=== PATIENT | male | born 1970 | race Caucasian/White ===

== ENCOUNTER 2017-06-20 21:30 | Emergency (ER) | payer OTHER ==
--- NOTE | 2017-06-20 21:58 | ERPHSYRPT ---
- History of Present Illness Time Seen by Provider: 06/20/17 21:45 Source: patient Exam Limitations: clinical condition Patient Subjective Stated Complaint: pt had knee surgery last week and maureenight sharad surture came and he was wondering if the rest of the sutres could be taken out -dr sorenson did the surgery Triage Nursing Assessment: pt is awake and alert and able to answer questions the wound is clean dry and intact Physician History: PATIENT UNDERWENT RIGHT KNEE SURGERY LAST WEEK AND STATES 1 OF HIS SUTURE CAME LOOSE ABOVE HIS RIGHT KNEE. DENIES DRAINAGE, REDNESS, SWELLING OR FEVER. Occurred: this morning Severity of Pain-Max: none Severity of Pain-Current: none Modifying Factors: Improves With: nothing Associated Symptoms: none Allergies/Adverse Reactions: morphine Allergy (Verified 10/23/16 21:13) Home Medications: Hydrocodone/APAP 10/325 mg [[place] 10/325 MG Tablet] 1 tab PO QIDPRN PRN [History] Omeprazole 20 MG [Prilosec 20 mg] 20 mg PO DAILY 11/28/13 [History] Temazepam 15 mg [Restoril 15 MG] 15 mg PO HSPRN PRN 11/28/13 [History] Cyclobenzaprine HCl 10 mg [Flexeril 10 MG] 1 tab PO DAILY 08/23/15 [ History] Eszopiclone [Lunesta] 3 mg PO HS 08/23/15 [History] Gabapentin 600 mg PO TID 10/23/16 [History] Hx Tetanus, Diphtheria Vaccination/Date Given: Yes Hx Influenza Vaccination/Date Given: No Hx Pneumococcal Vaccination/Date Given: No - Review of Systems Constitutional: No Fever, No Chills Eyes: No Symptoms Ears, Nose, & Throat: No Symptoms Respiratory: No Symptoms, No Cough, No Dyspnea Cardiac: No Chest Pain, No Edema, No Syncope Abdominal/Gastrointestinal: No Abdominal Pain, No Nausea, No Vomiting, No Diarrhea Genitourinary Symptoms: No Symptoms, No Dysuria Musculoskeletal: No Symptoms, Other (SUTURES X2 INTACT OVER RIGHT KNEE), No Back Pain, No Neck Pain Skin: No Rash Neurological: No Dizziness, No Focal Weakness, No Sensory Changes Psychological: No Symptoms Endocrine: No Symptoms All Other Systems: Reviewed and Negative - Past Medical History Pertinent Past Medical History: Yes Neurological History: No Pertinent History ENT History: No Pertinent History Cardiac History: No Pertinent History Respiratory History: No Pertinent History Endocrine Medical History: No Pertinent History Musculoskeletal History: Degenerative Disk Disease, Osteoarthritis GI Medical History: GERD History: No Pertinent History Psycho-Social History: Bipolar, Depression Male Reproductive Disorders: No Pertinent History Other Medical History: Acid Reflux. Hx of MCL, ACL repair bilateral knees per patient - Past Surgical History Past Surgical History: Yes Neuro Surgical History: No Pertinent History Cardiac: No Pertinent History Respiratory: No Pertinent History Gastrointestinal: No Pertinent History Musculoskeletal: Orthopedic Surgery Male Surgical History: No Pertinent History Other Surgical History: tonsils, lithotripsy, left knee ACL repair, RIGHT ACL REPAIR - Social History Smoking Status: Current every day smoker Exposure to second hand smoke: No Drug Use: none Patient Lives Alone: No - Nursing Vital Signs Nursing Vital Signs: Initial Vital Signs Temperature 98.5 F 06/20/17 21:41 Pulse Rate 104 H 06/20/17 21:41 Respiratory Rate 18 06/20/17 21:41 Blood Pressure 133/84 06/20/17 21:41 O2 Sat by Pulse Oximetry 94 L 06/20/17 21:41 Pain Scale Pain Intensity 0 - Physical Exam General Appearance: no apparent distress Knees Exam: right knee: normal inspection (RIGHT KNEE 2 SUTURES INTACT OVER MEDIAL AND LATERAL ASPECT OF [place], NO SWELLING OR REDNESS OR DRAINAGE, FROM RIGHT KNEE WITHOUT PAIN) SpO2 Interpretation: normal SpO2: 94 Oxygen Delivery: Room Air - Progress Counseled pt/family regarding: need for follow-up - Departure Time of Disposition: 22:00 Departure Disposition: Home Clinical Impression: RIGHT KNEE WOUND RECHECK Condition: Stable Critical Care Time: No Additional Instructions: FOLLOWUP WITH ORTHOPEDIC SURGEON FOR SUTURE REMOVAL.
[2017-06-20 22:07] VITALS: BP 126/84; PULSE 92; O2SAT 96
== END 2017-06-20 22:07 | disposition home or self-care (01) ==
LOC: ED 21:30
DX: Z04.8 Encounter for examination and observation for other specified reasons (principal); Z48.01 Encounter for change or removal of surgical wound dressing
CPT/HCPCS: 99281

== ENCOUNTER 2017-08-31 16:34 | Emergency (ER) | payer OTHER ==
[2017-08-31] MEDS ORDERED: Sodium Chloride 0.9% 1000 ML 1,000 ML IV STA (17:35)
[2017-08-31] MEDS ORDERED: Zofran 4 MG/2 ML VIAL IV ONE (17:35)
--- NOTE | 2017-08-31 17:37 | ERPHSYRPT ---
- History of Present Illness Time Seen by Provider: 08/31/17 17:31 Source: patient Exam Limitations: no limitations Patient Subjective Stated Complaint: vomiting and aching all over since yesterday Triage Nursing Assessment: ambulated to room per self. skin w/d, color normal, resp easy. no vomiting at present time. states he feels like he has a "knot" in his stomach. denies any diarrhea. Physician History: Patient is a 46-year-old male complaining of not feeling well for 3 days. Yesterday he began vomiting. He continues vomiting today. He states his muscles of started to cramp up on him. For the past 2 nights he has been sweating. His past medical history is significant for bipolar disorder and GERD. Timing/Duration: yesterday Severity: moderate Modifying Factors: Improves With: nothing Associated Symptoms: nausea, vomiting, No abdominal pain Allergies/Adverse Reactions: morphine Allergy (Verified 08/31/17 17:05) Home Medications: Hydrocodone/APAP 10/325 mg [[place] 10/325 MG Tablet] 1 tab PO QIDPRN PRN [History] Omeprazole 20 MG [Prilosec 20 mg] 20 mg PO DAILY 11/28/13 [History] Cyclobenzaprine HCl 10 mg [Flexeril 10 MG] 1 tab PO DAILY 08/23/15 [ History] Eszopiclone [Lunesta] 3 mg PO HS 08/23/15 [History] Gabapentin 600 mg PO TID 10/23/16 [History] Bupropion HCl Xl 150 mg [Wellbutrin XL 150 MG] 150 mg PO BID 08/31/17 [ History] Hx Tetanus, Diphtheria Vaccination/Date Given: Yes Hx Influenza Vaccination/Date Given: No Hx Pneumococcal Vaccination/Date Given: No - Review of Systems Constitutional: Night Sweats Eyes: No Symptoms Ears, Nose, & Throat: No Symptoms Respiratory: No Cough, No Dyspnea Cardiac: No Chest Pain, No Edema, No Syncope Abdominal/Gastrointestinal: Nausea, Vomiting Genitourinary Symptoms: No Dysuria Musculoskeletal: Myalgias Skin: No Rash Neurological: No Dizziness, No Focal Weakness, No Sensory Changes Psychological: No Symptoms Endocrine: No Symptoms Hematologic/Lymphatic: No Symptoms Immunological/Allergic: No Symptoms All Other Systems: Reviewed and Negative - Past Medical History Pertinent Past Medical History: Yes Neurological History: No Pertinent History ENT History: No Pertinent History Cardiac History: No Pertinent History Respiratory History: No Pertinent History Endocrine Medical History: No Pertinent History Musculoskeletal History: Degenerative Disk Disease, Osteoarthritis GI Medical History: GERD History: No Pertinent History Psycho-Social History: Bipolar, Depression Male Reproductive Disorders: No Pertinent History Other Medical History: Acid Reflux. Hx of MCL, ACL repair bilateral knees per patient - Past Surgical History Past Surgical History: Yes Neuro Surgical History: No Pertinent History Cardiac: No Pertinent History Respiratory: No Pertinent History Gastrointestinal: No Pertinent History Musculoskeletal: Orthopedic Surgery Male Surgical History: No Pertinent History Other Surgical History: tonsils, lithotripsy, left knee ACL repair, RIGHT ACL REPAIR - Social History Smoking Status: Former smoker Exposure to second hand smoke: No Drug Use: none Patient Lives Alone: No - Nursing Vital Signs Nursing Vital Signs: Initial Vital Signs Temperature 98.5 F 08/31/17 16:58 Pulse Rate 65 08/31/17 16:58 Respiratory Rate 16 08/31/17 16:58 Blood Pressure 140/69 08/31/17 16:58 O2 Sat by Pulse Oximetry 93 L 08/31/17 16:58 Pain Scale Pain Intensity 0 - Physical Exam General Appearance: no apparent distress, alert Eye Exam: PERRL/EOMI, eyes nml inspection Ears, Nose, Throat Exam: dry mucous membranes Neck Exam: normal inspection, non-tender, supple, full range of motion Respiratory Exam: normal breath sounds, lungs clear, No respiratory distress Cardiovascular Exam: regular rate/rhythm, normal heart sounds, normal peripheral pulses Gastrointestinal/Abdomen Exam: soft, normal bowel sounds, No tenderness, No mass Rectal Exam: not done Back Exam: normal inspection, normal range of motion, No CVA tenderness, No vertebral tenderness Extremity Exam: normal inspection, normal range of motion, pelvis stable Neurologic Exam: alert, oriented x 3, cooperative, normal mood/affect, nml cerebellar function, nml station & gait, sensation nml, No motor deficits Skin Exam: normal color, warm, dry, No rash Lymphatic Exam: No adenopathy SpO2 Interpretation: normal SpO2: 93 Oxygen Delivery: Room Air Ordered Tests: Active Orders 24 hr Category Date Time Status IV Insertion STAT Care 08/31/17 17:26 Active CBC W DIFF Stat Lab 08/31/17 17:25 Completed CMP Stat Lab 08/31/17 17:25 Completed Lactic Acid Stat Lab 08/31/17 17:40 Completed Medication Summary Discontinued Medications Generic Name Dose Route Start Last Admin Trade Name Syl PRN Reason Stop Dose Admin Sodium Chloride 1,000 mls @ 999 mls/hr 08/31/17 17:35 08/31/17 17:40 Sodium Chloride 0.9% 1000 Ml IV 08/31/17 18:35 999 mls/hr .Q1H1M STA Administration Sodium Chloride Confirm 08/31/17 17:38 Sodium Chloride 0.9% 1000 Ml Administered 08/31/17 17:39 Dose 1,000 mls @ ud .ROUTE .STK-MED ONE Ondansetron HCl 4 mg 08/31/17 17:35 08/31/17 17:40 Zofran 4 Mg/2 Ml Vial IV 08/31/17 17:36 4 mg STAT ONE Administration Ondansetron HCl Confirm 08/31/17 17:38 Zofran 4 Mg/2 Ml Vial Administered 08/31/17 17:39 Dose 4 mg .ROUTE .STK-MED ONE Lab/Rad Data: Laboratory Result Diagrams 08/31/17 17:25 08/31/17 17:25 Laboratory Results 08/31/17 08/31/17 08/31/17 Range/Units 17:40 17:25 17:25 WBC 5.9 (4.0-10.5) K/mm3 RBC 4.74 (4.1-5.6) M/mm3 Hgb 14.5 (12.5-18.0) gm/dl Hct 42.4 (42-50) % MCV 89.5 (78-100) fl MCH 30.6 (26-32) pg MCHC 34.2 (32-36) g/dl RDW 12.9 (11.5-14.0) % Plt Count 188 (150-450) K/mm3 MPV 10.3 H (6-9.5) fl Gran % 55.2 (36.0-66.0) % Lymphocytes % 29.0 (24.0-44.0) % Monocytes % 9.5 (0.0-12.0) % Eosinophils % 5.1 H (0.00-5.0) % Basophils % 1.2 (0.0-0.4) % Basophils # 0.07 (0-0.4) Sodium 140 (136-145) mEq/L Potassium 4.0 (3.5-5.1) mEq/L Chloride 105 (98-107) mEq/L Carbon Dioxide 27.9 (21-32) mEq/L Anion Gap 11.5 (5-15) MEQ/L BUN 10 (9-20) mg/dL Creatinine 1.26 (0.55-1.30) mg/dl Estimated GFR > 60 ML/MIN Glucose 107 (70-110) MG/DL Lactic Acid 1.7 (0.4-2.0) Calcium 8.9 (8.5-10.1) mg/dL Total Bilirubin 0.40 (0.2-1.0) mg/dL AST 24 (15-37) U/L ALT 32 (12-78) U/L Alkaline Phosphatase 82 (46-116) U/L Serum Total Protein 6.3 L (6.4-8.2) gm/dL Albumin 3.8 (3.4-5.0) g/dL - Progress Progress: improved Counseled pt/family regarding: lab results, diagnosis - Departure Time of Disposition: 18:46 Departure Disposition: Home Clinical Impression: Vomiting Condition: Stable Critical Care Time: No Referrals: SUSAN HOLLAND [Primary Care Provider] - Additional Instructions: You had vomiting. You were given Zofran 4 mg by IV and fluids by IV in the ER. Take Zofran 4 mg ODT every 6 hours as needed for nausea and vomiting. Stay well hydrated. Follow-up as needed. Prescriptions: Ondansetron ODT 4 MG [Zofran Odt 4 mg] 1 tab PO Q6H PRN PRN #10 tab.rapdis PRN Reason: Nausea/Vomiting
[2017-08-31] MEDS ORDERED: Sodium Chloride 0.9% 1000 ML 1,000 ML ONE (17:38)
[2017-08-31] MEDS ORDERED: Zofran 4 MG/2 ML VIAL ONE (17:38)
[2017-08-31 17:47] LABS: BASOPHIL % 1.2 % (0.0-0.4); Eosinophil % 5.1 % (0.00-5.0); Granulocytes % 55.2 % (36.0-66.0); Mean Cell Volume 89.5 fl (78-100); Mean Corpuscular Hemoglobin 30.6 pg (26-32); Mean Platelet Volume 10.3 fl (6-9.5); Monocytes % 9.5 % (0.0-12.0); Platelet Count 188 K/mm3 (150-450); Red Blood Count 4.74 M/mm3 (4.1-5.6); Red Cell Distribution Width 12.9 % (11.5-14.0); White Blood Count 5.9 K/mm3 (4.0-10.5)
[2017-08-31 18:09] LABS: ALBUMIN 3.8 g/dL (3.4-5.0); ALKALINE PHOSPHATASE 82 U/L (46-116); ANION GAP 11.5 MEQ/L (5-15); BLOOD UREA NITROGEN 10 mg/dL (9-20); CHLORIDE 105 mEq/L (98-107); Carbon Dioxide 27.9 mEq/L (21-32); Glucose 107 MG/DL (70-110); SGOT/AST 24 U/L (15-37); SGPT/ALT 32 U/L (12-78); SODIUM 140 mEq/L (136-145); Total Protein 6.3 gm/dL (6.4-8.2)
[2017-08-31 18:36] VITALS: BP 109/62; PULSE 76; O2SAT 93
== END 2017-08-31 18:58 | disposition home or self-care (01) ==
LOC: ED 16:34
DX: R11.2 Nausea with vomiting, unspecified (principal); R25.2 Cramp and spasm; F31.9 Bipolar disorder, unspecified; K21.9 Gastro-esophageal reflux disease without esophagitis; Z79.891 Long term (current) use of opiate analgesic; Z79.899 Other long term (current) drug therapy
CPT/HCPCS: 36000; 36415; 80053; 83605; 85025; 96360; 96374; 99283; 99284; J2405

== ENCOUNTER 2020-09-04 09:40 | Emergency (ER) | payer OTHER ==
[2020-09-04 10:28] VITALS: BP 164/104; PULSE 85; O2SAT 94
--- NOTE | 2020-09-04 10:39 | ERPHSYRPT ---
- History of Present Illness Time Seen by Provider: 09/04/20 10:20 Source: patient Exam Limitations: no limitations Patient Subjective Stated Complaint: Earache Triage Nursing Assessment: Patient ambulated back to ED and transferred self to bed. Patient A+O X 3. Patient's skin pink, warm and dry. Patient complains of earache to right ear constant aching pain / since Saturday. Patient denies drainage or difficulty hearing. Physician History: 49 years old male with history of recurrent otitis media in the past with ruptured TM presented in the ER with 2 days history of gradually increasing pain moderate intensity sharp in nature in the right ear without any drainage. Denies fever or chills. No URI symptoms otherwise. Timing/Duration: gradual onset, days (2) Severity: moderate ENT Location: ear (R) Prearrival Treatment: over the counter meds Associated Symptoms: ear pain (R), No cough, No fever, No change in hearing, No ear drainage, No headache, No nasal congestion/drainage, No neck pain, No sore throat Allergies/Adverse Reactions: morphine Allergy (Verified 09/04/20 10:22) Home Medications: Omeprazole 20 MG [Prilosec 20 mg] 20 mg PO DAILY 11/28/13 [History] Eszopiclone [Lunesta] 3 mg PO HS 08/23/15 [History] Gabapentin 600 mg PO BID 10/23/16 [History] Diphenhydramine HCl 25 mg [Benadryl 25 mg Capsule] 25 mg PO HS 07/11/19 [History] Hydrocodone Bit/Acetaminophen [[place] 7.5-325 Tablet] 1 each PO BID 07/11/19 [History] Hx Tetanus, Diphtheria Vaccination/Date Given: Yes Hx Influenza Vaccination/Date Given: No Hx Pneumococcal Vaccination/Date Given: No Immunizations Up to Date: Yes Travel Risk - International Travel Have you traveled outside of the country in past 3 weeks: No - Coronavirus Screening Are you exhibiting any of the following symptoms?: No Close contact with a COVID-19 positive Pt in past 14-21 Days: No - Review of Systems Constitutional: No Symptoms Eyes: No Symptoms Ears, Nose, & Throat: Ear Pain Respiratory: No Symptoms Cardiac: No Symptoms Abdominal/Gastrointestinal: No Symptoms Genitourinary Symptoms: No Symptoms Musculoskeletal: No Symptoms Skin: No Symptoms Neurological: No Symptoms Hematologic/Lymphatic: No Symptoms - Past Medical History Pertinent Past Medical History: Yes Neurological History: No Pertinent History ENT History: No Pertinent History Cardiac History: No Pertinent History Respiratory History: No Pertinent History Endocrine Medical History: No Pertinent History Musculoskeletal History: Degenerative Disk Disease, Osteoarthritis GI Medical History: GERD History: No Pertinent History Psycho-Social History: Bipolar, Depression Male Reproductive Disorders: No Pertinent History Other Medical History: Acid Reflux. Hx of MCL, ACL repair bilateral knees per patient - Past Surgical History Past Surgical History: Yes Neuro Surgical History: No Pertinent History Cardiac: No Pertinent History Respiratory: No Pertinent History Gastrointestinal: No Pertinent History Genitourinary: Other Musculoskeletal: Orthopedic Surgery Male Surgical History: No Pertinent History Other Surgical History: lithotripsy, left knee ACL repair x 2, RIGHT ACL REPAIR x 2 - Social History Smoking Status: Never smoker Exposure to second hand smoke: No Drug Use: none Patient Lives Alone: Yes - Nursing Vital Signs Nursing Vital Signs: Initial Vital Signs Pulse Rate 85 09/04/20 10:24 Respiratory Rate 18 09/04/20 10:24 Blood Pressure 164/104 09/04/20 10:24 O2 Sat by Pulse Oximetry 94 L 09/04/20 10:24 Pain Scale Pain Intensity 6 - Physical Exam General Appearance: no apparent distress, alert Eye Exam: bilateral eye: normal inspection, PERRL Ear Exam: right ear: TM dull, TM bulging, left ear: TM normal, bilateral ear: auricle normal, canal normal Nasal Exam: normal inspection Throat Exam: normal, pharynx normal Neck Exam: normal inspection, non-tender, supple, full range of motion Cardiovascular/Respiratory Exam: normal breath sounds, regular rate/rhythm Neurologic Exam: alert, oriented x 3, cooperative, lehr cutter II-XII nml as tested, normal mood/affect Skin Exam: normal color SpO2 Interpretation: normal SpO2: 94 O2 Delivery: Room Air - Progress Progress: unchanged Progress Note: 09/04/20 10:42 Has otitis media, started on Augmentin along with pain medications as needed and outpatient follow-up with primary care. Because of repeated infection recommended outpatient follow-up/referral from primary care for ENT. Counseled pt/family regarding: diagnosis, need for follow-up - Departure Departure Disposition: Home Clinical Impression: Otitis media of right ear Qualifiers: Otitis media type: suppurative Chronicity: acute Recurrence: recurrent Spontaneous tympanic membrane rupture: without spontaneous rupture Qualified Code(s): H66.004 - Acute suppurative otitis media without spontaneous rupture of ear drum, recurrent, right ear Condition: Stable Critical Care Time: No Referrals: SUSAN SINGH [Primary Care Provider] - Follow Up with PCP/3 days Instructions: Serous Otitis Media (DC) Additional Instructions: Use Tylenol use Tylenol/ibuprofen as needed for pain. Continue with antibiotics. Follow-up with your primary care physician for reevaluation and may need referral to ENT specialist. Prescriptions: Amox Tr/Potass Clav. 875 mg [Augmentin 875-125 Tablet] 875 mg PO BID #20 tablet
== END 2020-09-04 10:55 | disposition home or self-care (01) ==
LOC: ED 09:40
DX: H66.91 Otitis media, unspecified, right ear (principal)
CPT/HCPCS: 99283

== ENCOUNTER 2023-02-21 22:18 | Emergency (ER) | payer OTHER ==
[2023-02-21] MEDS ORDERED: Sodium Chloride 0.9% 1000 ML 1,000 ML IV STA (22:38)
[2023-02-21] MEDS ORDERED: Zofran 4 MG/2 ML VIAL IV ONE (22:38)
[2023-02-21 22:46] LABS: Absolute Neutrophil Ct (ANC) 8.24 x10^3/uL (1.4-6.9); BASOPHIL % 0.2 % (0.0-0.4); Basophil (Absolute #) 0.02 x10^3/uL (0-0.4); Eosinophil % 2.5 % (0.00-5.0); Eosinophil (Absolute #) 0.27 x10^3/uL (0-0.5); Hematocrit 49.6 % (42-50); Hemoglobin 16.6 g/dL (12.5-18.0); IMMATURE GRAN # 0.04 x10^3u/L (0.00-0.03); IMMATURE GRAN % 0.4 % (0.00-0.4); Lymphocyte (Absolute #) 1.85 x10^3/uL (1.0-4.6); Lymphocytes % 16.8 % (24.0-44.0); Mean Cell Volume 89.7 fL (78-100); Mean Corpuscular Hgb Concent. 33.5 g/dL (32-36); Mean Platelet Volume 9.8 fL (7.5-11.0); Monocyte (Absolute #) 0.57 x10^3/uL (0.0-1.3); Monocytes % 5.2 % (0.0-12.0); Neutrophil % 74.9 % (36.0-66.0); Platelet Count 300 x10^3/uL (150-450); Red Blood Count 5.53 x10^6/uL (4.1-5.6); Red Cell Distribution Width 12.4 % (11.5-14.0)
[2023-02-21] MEDS ORDERED: Sodium Chloride 0.9% 1000 ML 1,000 ML ONE (22:48)
[2023-02-21] MEDS ORDERED: Zofran 4 MG/2 ML VIAL ONE (22:48)
[2023-02-21 23:00] LABS: ALBUMIN 4.2 g/dL (3.5-5.0); ALKALINE PHOSPHATASE 126 U/L (38-126); AMYLASE 90 U/L (30-110); ANION GAP 15.5 MEQ/L (5-15); BLOOD UREA NITROGEN 10 mg/dL (9-20); CHLORIDE 102 mmol/L (98-107); Calcium 9.2 mg/dL (8.4-10.2); Carbon Dioxide 25 mmol/L (22-30); Creatinine 1 1.07 mg/dL (0.66-1.25); EST GLOMERULAR FILTRATION RATE > 60.0 ML/MIN; Glucose 97 mg/dL (74-106); LIPASE 110 U/L (23-300); Potassium 4.2 mmol/L (3.5-5.1); SGOT/AST 20 U/L (17-59); SGPT/ALT 20 U/L (0-50); SODIUM 139 mmol/L (137-145); Total Protein 7.4 g/dL (6.3-8.2)
--- NOTE | 2023-02-21 23:40 | ERPHSYRPT ---
- History of Present Illness Historian: patient Exam Limitations: no limitations Patient Subjective Stated Complaint: pt states I don't know if I have food poisoning or the ozempic that is making me throwing up Triage Nursing Assessment: pt ambulated into the er; pt is axo x4; c/o vomiting; no pain noted; no respiratory distress present; skin PDW; mucus membranes pink and moist; c/o N/V; denies diarrhea or constipation; vitals wnl Physician History: 52 yo WM who administered his 2nd injection of Ozempic 2 days ago for weight loss presents w a 1 day h/o nausea/vomiting. He denies abdominal pain/diarrhea/chest pain/melena/hematochezia/fever/cough/coryza. Pt also ate [employer] yesterday before the N/V began. Timing/Duration: yesterday Activities at Onset: rest Modifying Factors: Improves With: nothing Associated Symptoms: nausea, vomiting Previous symptoms: no prior history Allergies/Adverse Reactions: morphine Allergy (Verified 02/21/23 22:25) Home Medications: Omeprazole 20 MG [Prilosec 20 mg] 20 mg PO DAILY 11/28/13 [History] Eszopiclone [Lunesta] 3 mg PO HS 08/23/15 [History] Gabapentin 300 mg PO BID 10/23/16 [History] Diphenhydramine HCl 25 mg [Benadryl 25 mg Capsule] 25 mg PO HS 07/11/19 [History] Hydrocodone/Acetaminophen [[place] 7.5-325 Tablet] 1 each PO BID 07/11/19 [History] Semaglutide [Ozempic] 1 syringe SQ WEEKLY 02/21/23 [History] Hx Tetanus, Diphtheria Vaccination/Date Given: Yes Hx Influenza Vaccination/Date Given: No Hx Pneumococcal Vaccination/Date Given: No Travel Risk - International Travel Have you traveled outside of the country in past 3 weeks: No - Coronavirus Screening Are you exhibiting any of the following symptoms?: Yes Symptoms: Vomiting/Diarrhea Close contact with a COVID-19 positive Pt in past 14-21 Days: No - Vaccine Status Have you recieved a Covid-19 vaccination: No - Review of Systems Constitutional: No Symptoms Eyes: No Symptoms Ears, Nose, & Throat: No Symptoms Respiratory: No Symptoms Cardiac: No Symptoms Abdominal/Gastrointestinal: No Symptoms, Nausea, Vomiting Genitourinary Symptoms: No Symptoms Musculoskeletal: No Symptoms Skin: No Symptoms Neurological: No Symptoms Psychological: No Symptoms Endocrine: No Symptoms Hematologic/Lymphatic: No Symptoms Immunological/Allergic: No Symptoms - Past Medical History Pertinent Past Medical History: Yes Neurological History: No Pertinent History ENT History: No Pertinent History Cardiac History: No Pertinent History Respiratory History: No Pertinent History Endocrine Medical History: No Pertinent History Musculoskeletal History: Degenerative Disk Disease, Osteoarthritis GI Medical History: GERD History: No Pertinent History Psycho-Social History: Bipolar, Depression Male Reproductive Disorders: No Pertinent History Other Medical History: Acid Reflux. Hx of MCL, ACL repair bilateral knees per patient - Past Surgical History Past Surgical History: Yes Neuro Surgical History: No Pertinent History Cardiac: No Pertinent History Respiratory: No Pertinent History Gastrointestinal: No Pertinent History Genitourinary: Other Musculoskeletal: Orthopedic Surgery Male Surgical History: No Pertinent History Other Surgical History: lithotripsy, left knee ACL repair x 2, RIGHT ACL REPAIR x 2 - Social History Smoking Status: Former smoker Exposure to second hand smoke: Yes Drug Use: none Patient Lives Alone: No - Nursing Vital Signs Nursing Vital Signs: Initial Vital Signs Temperature 97.2 F 02/21/23 22:28 Pulse Rate 76 02/21/23 22:28 Respiratory Rate 16 02/21/23 22:28 Blood Pressure 140/100 02/21/23 22:28 O2 Sat by Pulse Oximetry 94 L 02/21/23 22:28 Pain Scale Pain Intensity 0 Hypertensive - Physical Exam General Appearance: no apparent distress Eye Exam: PERRL/EOMI, eyes nml inspection Ears, Nose, Throat Exam: normal ENT inspection, TMs normal, pharynx normal, moist mucous membranes Neck Exam: normal inspection, non-tender, supple, full range of motion, No meningismus, No mass, No Brudzinski, No Kernig's, No carotid bruit Respiratory Exam: normal breath sounds, lungs clear, airway intact, No respiratory distress Cardiovascular Exam: regular rate/rhythm, normal heart sounds, normal peripheral pulses, capillary refill <2 sec, No murmur Gastrointestinal/Abdomen Exam: soft, normal bowel sounds, No tenderness Back Exam: normal inspection, normal range of motion Extremity Exam: normal inspection, normal range of motion Neurologic Exam: alert, oriented x 3, cooperative, manager industrial II-XII nml as tested, normal mood/affect, nml cerebellar function, nml station & gait, sensation nml Skin Exam: normal color, warm, dry Lymphatic Exam: No adenopathy SpO2 Interpretation: normal SpO2: 93 O2 Delivery: Room Air - Course Nursing assessment & vital signs reviewed: Yes EKG Interpreted by Me: RATE (NSR/Rate70/Normal QT-QTc/Flat T waves) Ordered Tests: Active Orders 24 hr Category Date Time Status EKG-ER Only STAT Care 02/21/23 23:01 Active AMYLASE Stat Lab 02/21/23 22:30 Completed CBC W DIFF Stat Lab 02/21/23 22:30 Completed CMP Stat Lab 02/21/23 22:30 Completed LIPASE Stat Lab 02/21/23 22:30 Completed TROPONIN Q4H Lab 02/21/23 22:30 Completed TROPONIN Q4H Lab 02/22/23 02:45 Ordered TROPONIN Q4H Lab 02/22/23 06:45 Ordered Medication Summary Discontinued Medications Generic Name Dose Route Start Last Admin Trade Name Freq PRN Reason Stop Dose Admin Sodium Chloride 1,000 mls @ 999 mls/hr 02/21/23 22:38 02/21/23 23:58 Sodium Chloride 0.9% 1000 Ml IV 02/21/23 23:38 Infused .Q1H1M STA Infusion Sodium Chloride Confirm 02/21/23 22:48 Sodium Chloride 0.9% 1000 Ml Administered 02/21/23 22:49 Dose 1,000 mls @ ud .ROUTE .STK-MED ONE Ondansetron HCl 4 mg 02/21/23 22:38 02/21/23 22:52 Ondansetron Hcl 4 Mg/2 Ml Vial IV 02/21/23 22:39 4 mg STAT ONE Administration Ondansetron HCl Confirm 02/21/23 22:48 Ondansetron Hcl 4 Mg/2 Ml Vial Administered 02/21/23 22:49 Dose 4 mg .ROUTE .STK-MED ONE Prochlorperazine Edisylate 10 mg 02/21/23 23:41 02/21/23 23:43 Prochlorperazine Edisylate 10 Mg/2 Ml Vial IV 02/21/23 23:42 10 mg STAT ONE Administration Prochlorperazine Edisylate Confirm 02/21/23 23:42 Prochlorperazine Edisylate 10 Mg/2 Ml Vial Administered 02/21/23 23:43 Dose 10 mg .ROUTE .STK-MED ONE Lab/Rad Data: Laboratory Result Diagrams 02/21/23 22:30 02/21/23 22:30 Laboratory Results 02/21/23 02/21/23 02/21/23 Range/Units 22:30 22:30 22:30 WBC 11.0 H (4.0-10.5) x10^3/uL RBC 5.53 (4.1-5.6) x10^6/uL Hgb 16.6 (12.5-18.0) g/dL Hct 49.6 (42-50) % MCV 89.7 (78-100) fL MCH 30.0 (26-32) pg MCHC 33.5 (32-36) g/dL RDW 12.4 (11.5-14.0) % Plt Count 300 (150-450) x10^3/uL MPV 9.8 (7.5-11.0) fL Gran % 74.9 H (36.0-66.0) % Immature Gran % (Auto) 0.4 (0.00-0.4) % Nucleat RBC Rel Count 0.0 (0.00-0.1) % Eos # (Auto) 0.27 (0-0.5) x10^3/uL Immature Gran # (Auto) 0.04 H (0.00-0.03) x10^3u/L Absolute Lymphs (auto) 1.85 (1.0-4.6) x10^3/uL Absolute Monos (auto) 0.57 (0.0-1.3) x10^3/uL Absolute Nucleated RBC 0.00 (0.00-0.01) x10^3u/L Lymphocytes % 16.8 L (24.0-44.0) % Monocytes % 5.2 (0.0-12.0) % Eosinophils % 2.5 (0.00-5.0) % Basophils % 0.2 (0.0-0.4) % Absolute Granulocytes 8.24 H (1.4-6.9) x10^3/uL Basophils # 0.02 (0-0.4) x10^3/uL Sodium 139 (137-145) mmol/L Potassium 4.2 (3.5-5.1) mmol/L Chloride 102 (98-107) mmol/L Carbon Dioxide 25 (22-30) mmol/L Anion Gap 15.5 H (5-15) MEQ/L BUN 10 (9-20) mg/dL Creatinine 1.07 (0.66-1.25) mg/dL Estimated GFR > 60.0 ML/MIN Glucose 97 (74-106) mg/dL Calcium 9.2 (8.4-10.2) mg/dL Total Bilirubin 1.20 (0.2-1.3) mg/dL AST 20 (17-59) U/L ALT 20 (0-50) U/L Alkaline Phosphatase 126 (38-126) U/L Troponin I < 0.012 (0.000-0.034) ng/mL Serum Total Protein 7.4 (6.3-8.2) g/dL Albumin 4.2 (3.5-5.0) g/dL Amylase 90 (30-110) U/L Lipase 110 (23-300) U/L - Progress Progress: improved Progress Note: 02/22/23 00:07 Nursing note and vital signs reviewed No food or housing insecurities noted 1L NS bolus/4mg IV Zofran/10mg IV compazine w improvement All labs reviewed and shared w pt and Additional history per It appears that pt does not have a surgical abdomen at this time or and acute c ardiac event. N/V most likely due to Ozempic or viral etiology. 02/22/23 00:12 Serial abdominal exams NTTP Counseled pt/family regarding: lab results, diagnosis, need for follow-up - Departure Departure Disposition: Home Clinical Impression: Nausea & vomiting Condition: Stable Critical Care Time: No Referrals: SUSAN JEFFERSON [Primary Care Provider] - Follow up/PCP as directed Instructions: Nausea and Vomiting, Adult (DC) Additional Instructions: Follow up with your family MD in 1-2 days Zofran for nausea/vomting Return to ER for worsening abdominal pain, chest pain, or inability to hold down fluids Prescriptions: Ondansetron ODT 4 MG [Zofran Odt 4 mg] 4 mg PO Q6H PRN PRN #10 tablet PRN Reason: Nausea
[2023-02-21] MEDS ORDERED: Compazine 10 MG/2 ML IV ONE (23:41)
[2023-02-21] MEDS ORDERED: Compazine 10 MG/2 ML ONE (23:42)
[2023-02-21 23:47] VITALS: O2SAT 93
[2023-02-22 00:15] VITALS: BP 120/74; PULSE 77
== END 2023-02-22 00:17 | disposition home or self-care (01) ==
LOC: ED 22:18
DX: R11.2 Nausea with vomiting, unspecified (principal); Z79.85 Long-term (current) use of injectable non-insulin antidiabetic drugs; Z79.899 Other long term (current) drug therapy; Z28.310 Unvaccinated for COVID-19
CPT/HCPCS: 36000; 36415; 80053; 82150; 83690; 84484; 85025; 93005; 96360; 96374; 99284; J2405

== ENCOUNTER 2024-04-03 20:38 | Emergency (ER) | payer OTHER ==
[2024-04-03 20:46] VITALS: TEMP 97; O2SAT 97
--- NOTE | 2024-04-03 21:41 | ERPHSYRPT ---
- History of Present Illness Time Seen by Provider: 04/03/24 21:15 Source: patient Patient Subjective Stated Complaint: left ear pain, sore throat Triage Nursing Assessment: pt ambulated into ER without diff. Pt c/o cough, sore throat and bilat ear pain x2 days but primarily left ear pain. Lungs clear, heart tones reg. Bilat ears red with some mild wax noted. Throat is red with a few, white patches noted. Physician History: 53yo m presents for left ear itching and sore throat that started this afternoon. Pt states he is supposed to have a knee replacement next week and wanted to get check out before his surgery. Pt denies any fevers at home, denies any cough, n/v, denies difficulty swallowing, denies ear pain or discharge. Pt currently denies cp, soa, n/v/abdominal pain. Timing/Duration: today Cough Quality/Degree: no cough Possible Cause: no prior episodes Modifying Factors: Improves With: nothing Associated Symptoms: sore throat, No fever, No chills, No cough, No earache, No headache, No nasal congestion Allergies/Adverse Reactions: morphine Allergy (Verified 04/03/24 20:54) Home Medications: Omeprazole 20 MG [Prilosec 20 mg] 20 mg PO DAILY 11/28/13 [History] Eszopiclone [Lunesta] 3 mg PO HS 08/23/15 [History] Gabapentin 600 mg PO HS 10/23/16 [History] Diphenhydramine HCl 25 mg [Benadryl 25 mg Capsule] 25 mg PO HS 07/11/19 [History] Hydrocodone/Acetaminophen [[place] 7.5-325 Tablet] 1 each PO BID 07/11/19 [History] Atorvastatin Calcium 20 mg PO HS 04/03/24 [History] Hx Tetanus, Diphtheria Vaccination/Date Given: Yes Hx Influenza Vaccination/Date Given: No Hx Pneumococcal Vaccination/Date Given: No Travel Risk - International Travel Have you traveled outside of the country in past 3 weeks: No - Emerging Infectious Disease Are you exhibiting symptoms associated with any current EIDs: No - Review of Systems Constitutional: No Fever, No Chills, No Fatigue, No Malaise Ears, Nose, & Throat: Throat Pain, Other (left ear itching), No Ear Pain, No Hearing Changes, No Mouth Pain, No Throat Swelling, No Hoarse, No Painful Swallowing Respiratory: No Symptoms Cardiac: No Symptoms Abdominal/Gastrointestinal: No Symptoms - Past Medical History Pertinent Past Medical History: Yes Neurological History: No Pertinent History ENT History: No Pertinent History Cardiac History: No Pertinent History Respiratory History: No Pertinent History Endocrine Medical History: No Pertinent History Musculoskeletal History: Degenerative Disk Disease, Osteoarthritis GI Medical History: GERD History: No Pertinent History Psycho-Social History: Bipolar, Depression Male Reproductive Disorders: No Pertinent History Other Medical History: Acid Reflux. Hx of MCL, ACL repair bilateral knees per patient - Past Surgical History Past Surgical History: Yes Neuro Surgical History: No Pertinent History Cardiac: No Pertinent History Respiratory: No Pertinent History Gastrointestinal: No Pertinent History Genitourinary: Other Musculoskeletal: Orthopedic Surgery Male Surgical History: No Pertinent History Other Surgical History: lithotripsy, left knee ACL repair x 2, RIGHT ACL REPAIR x 2 - Social History Smoking Status: Never smoker Exposure to second hand smoke: Yes Drug Use: none Patient Lives Alone: No - Nursing Vital Signs Nursing Vital Signs: Initial Vital Signs Temperature 97.0 F 04/03/24 20:44 Pulse Rate 98 H 04/03/24 20:44 Respiratory Rate 22 04/03/24 20:44 Blood Pressure 128/87 04/03/24 20:44 O2 Sat by Pulse Oximetry 97 04/03/24 20:44 Pain Scale Pain Intensity 0 - Physical Exam General Appearance: no apparent distress, alert Ears, Nose, Throat Exam: TMs normal, moist mucous membranes, pharyngeal erythema, tonsillar exudate Neck Exam: normal inspection, non-tender, No meningismus Respiratory Exam: normal breath sounds, lungs clear, airway intact, No chest tenderness, No respiratory distress Cardiovascular Exam: regular rate/rhythm, normal heart sounds SpO2: 97 Ordered Tests: Medication Summary Discontinued Medications Generic Name Dose Route Start Last Admin Trade Name Freq PRN Reason Stop Dose Admin Amoxicillin/Clavulanate Potassium 875 mg 04/03/24 21:48 04/03/24 21:50 Amox Tr/Potassium Clavulanate 875 Mg Tablet PO 04/03/24 21:49 875 mg STAT ONE Administration Amoxicillin/Clavulanate Potassium Confirm 04/03/24 21:49 Amox Tr/Potassium Clavulanate 875 Mg Tablet Administered 04/03/24 21:50 Dose 875 mg .ROUTE .HumanAPIStubmatic ONE Lab/Rad Data: Laboratory Results 04/03/24 Range/Units 21:03 Group A Strep Antibody NOT DETECTED (NEGATIVE) - Progress Progress: unchanged Air Movement: fair Progress Note: 04/03/24 21:52 strep swab negative pt refused covid/flu swabs physical exam concerning for strep pharyngitis even in absence of positive swab - plan to treat w/ augmentin 7 day course outpatient, will give 1 dose in ED Instructed to follow up w/ PCP Dr Wood office this week, instructed to inform Dr Abdi's office of his antibiotic use on Saturday as well Use tylenol/ibuprofen for discomfort, can gargle warm salt water, drink warm honey return to ED if: develop throat swelling, develop fever that does not resolve w/ tylenol/ibuprofen, develop neck pain, develop difficulty swallowing Blood Culture(s) Obtained: No Antibiotics given: Yes Counseled pt/family regarding: lab results, need for follow-up Medical Desision Making - Risk of complications Minimal Risk: Minimal risk of morbidity - Departure Departure Disposition: Home Clinical Impression: Sore throat Pharyngitis Qualifiers: Pharyngitis/tonsillitis etiology: unspecified etiology Qualified Code(s): J02.9 - Acute pharyngitis, unspecified Condition: Stable Critical Care Time: No Referrals: ALAN WOOD DO [Primary Care Provider] - Follow up/PCP as directed Additional Instructions: physical exam concerning for strep pharyngitis even in absence of positive swab - plan to treat w/ augmentin 7 day course outpatient, will give 1 dose in ED Instructed to follow up w/ PCP Dr Wood office this week, instructed to inform Dr Abdi's office of his antibiotic use on Saturday as well Use tylenol/ibuprofen for discomfort, can gargle warm salt water, drink warm honey return to ED if: develop throat swelling, develop fever that does not resolve w/ tylenol/ibuprofen, develop neck pain, develop difficulty swallowing Prescriptions: Amox Tr/Potass Clav. 875 mg [Augmentin 875-125 Tablet] 875 mg PO BID 7 Days #13 tablet
[2024-04-03] MEDS ORDERED: Augmentin 875-125 Tablet ONE (21:49)
[2024-04-03] MEDS: Augmentin 875-125 Tablet PO ONE (21:50)
[2024-04-03 21:54] VITALS: BP 133/89; PULSE 82; RESP 18
== END 2024-04-03 22:03 | disposition home or self-care (01) ==
LOC: ED 20:38
DX: J02.9 Acute pharyngitis, unspecified (principal); L29.8 Other pruritus; Z79.899 Other long term (current) drug therapy
CPT/HCPCS: 87651; 99282; A9270-GY

== ENCOUNTER 2024-04-05 18:02 | Emergency (ER) | payer OTHER ==
[2024-04-05 18:28] VITALS: PULSE 96; TEMP 97.2
--- NOTE | 2024-04-05 18:45 | ERPHSYRPT ---
- History of Present Illness Time Seen by Provider: 04/05/24 18:44 Source: patient Exam Limitations: no limitations Patient Subjective Stated Complaint: Pt was in this ER 2 days ago and is being treated with Augmentin for strep although the test came back negative, pt states that it now feels like it is going into his chest and he has began coughing and he vomited last night Triage Nursing Assessment: Pt was brought to the ER by his , vitals wnl, rates pain as 5/10, pulses normal, no coughing heard during triage, lungs clear, no difficulty breathaing, states that he has pain in lungs from coughing, doesn't appear to be in any distress Physician History: Pt was in this ER 2 days ago and is being treated with Augmentin for strep although the test came back negative, pt states that it now feels like it is go ing into his chest and he has began coughing and he vomited last night Cough Quality/Degree: dry cough Associated Symptoms: denies symptoms Allergies/Adverse Reactions: morphine Allergy (Verified 04/05/24 18:28) Home Medications: Omeprazole 20 MG [Prilosec 20 mg] 20 mg PO DAILY 11/28/13 [History] Eszopiclone [Lunesta] 3 mg PO HS 08/23/15 [History] Gabapentin 600 mg PO HS 10/23/16 [History] Diphenhydramine HCl 25 mg [Benadryl 25 mg Capsule] 25 mg PO HS 07/11/19 [History] Hydrocodone/Acetaminophen [[place] 7.5-325 Tablet] 1 each PO BID 07/11/19 [History] Atorvastatin Calcium 20 mg PO HS 04/03/24 [History] Hx Tetanus, Diphtheria Vaccination/Date Given: Yes Hx Influenza Vaccination/Date Given: No Hx Pneumococcal Vaccination/Date Given: No Travel Risk - International Travel Have you traveled outside of the country in past 3 weeks: No - Emerging Infectious Disease Are you exhibiting symptoms associated with any current EIDs: No - Review of Systems Constitutional: No Fever, No Chills Eyes: No Symptoms Ears, Nose, & Throat: No Symptoms Respiratory: Cough, No Dyspnea Cardiac: No Chest Pain, No Edema, No Syncope Abdominal/Gastrointestinal: No Abdominal Pain, No Nausea, No Vomiting, No Diarrhea Genitourinary Symptoms: No Dysuria Musculoskeletal: No Back Pain, No Neck Pain Skin: No Rash Neurological: No Dizziness, No Focal Weakness, No Sensory Changes Psychological: No Symptoms Endocrine: No Symptoms All Other Systems: Reviewed and Negative - Past Medical History Pertinent Past Medical History: Yes Neurological History: No Pertinent History ENT History: No Pertinent History Cardiac History: No Pertinent History Respiratory History: No Pertinent History Endocrine Medical History: No Pertinent History Musculoskeletal History: Degenerative Disk Disease, Osteoarthritis GI Medical History: GERD History: No Pertinent History Psycho-Social History: Bipolar, Depression Male Reproductive Disorders: No Pertinent History Other Medical History: Acid Reflux. Hx of MCL, ACL repair bilateral knees per patient - Past Surgical History Past Surgical History: Yes Neuro Surgical History: No Pertinent History Cardiac: No Pertinent History Respiratory: No Pertinent History Gastrointestinal: No Pertinent History Genitourinary: Other Musculoskeletal: Orthopedic Surgery Male Surgical History: No Pertinent History Other Surgical History: lithotripsy, left knee ACL repair x 2, RIGHT ACL REPAIR x 2 - Social History Smoking Status: Never smoker Exposure to second hand smoke: No Drug Use: none Patient Lives Alone: No - Nursing Vital Signs Nursing Vital Signs: Initial Vital Signs Temperature 97.2 F 04/05/24 18:18 Pulse Rate 96 H 04/05/24 18:18 Blood Pressure 128/75 04/05/24 18:18 O2 Sat by Pulse Oximetry 95 04/05/24 18:18 Pain Scale Pain Intensity 5 - Physical Exam General Appearance: no apparent distress, alert Eye Exam: PERRL/EOMI, eyes nml inspection Ears, Nose, Throat Exam: normal ENT inspection, TMs normal, pharynx normal, moist mucous membranes Neck Exam: normal inspection, non-tender, supple, full range of motion Respiratory Exam: normal breath sounds, lungs clear, No respiratory distress Cardiovascular Exam: regular rate/rhythm, normal heart sounds Gastrointestinal/Abdomen Exam: soft, No tenderness Back Exam: normal inspection, No CVA tenderness, No vertebral tenderness Extremity Exam: normal inspection, normal range of motion Neurologic Exam: alert, oriented x 3, cooperative, normal mood/affect, sensation nml, No motor deficits Skin Exam: normal color, warm, dry, No rash Lymphatic Exam: No adenopathy SpO2: 95 - Course Nursing assessment & vital signs reviewed: Yes - Progress Progress: improved Counseled pt/family regarding: diagnosis, need for follow-up Medical Desision Making - Risk of complications Minimal Risk: Minimal risk of morbidity - Departure Departure Disposition: Home Clinical Impression: Cough due to bronchospasm Pharyngitis Qualifiers: Pharyngitis/tonsillitis etiology: unspecified etiology Qualified Code(s): J02.9 - Acute pharyngitis, unspecified Condition: Stable Critical Care Time: No Referrals: ALAN WOOD DO [Primary Care Provider] - Follow up/PCP as directed Instructions: Cough, Adult (DC) Additional Instructions: Discharge/Care Plan JIM TAYLOR was seen on 04/05/24 in the Emergency Room. The patient was counseled regarding Diagnosis,Lab results, Imaging studies, need for follow up and when to return to the Emergency Room. Prescriptions given: Discharge Note I have spoken with the patient and/or caregivers. I have explained the patient's condition, diagnosis and treatment plan based on the information available to me at this time. I have answered the patient's and/or caregiver's questions and addressed any concerns. The patient and/or caregivers have as good understanding of the patient's diagnosis, condition and treatment plan as can be expected at this point. The vital signs have been stable. The patient's condition is stable and appropriate for discharge from the emergency department. The patient will pursue further outpatient evaluation with the primary care ph ysician or other designated or consulting physician as outlined in the discharge instructions. The patient and/or caregivers are agreeable to this plan of care and follow-up instructions have been explained in detail. The patient and/or caregivers have received these instruction. The patient/and or caregivers are aware that any significant change in condition or worsening of symptoms should prompt an immediate return to this or the closest emergency department or call 911. JIM TAYLOR was seen on 04/05/24 n the Emergency Room. At that time you were treated for an emergent condition, during your visit Laboratory, Radiology and/or other procedures may have been ordered. It is very important that you follow-up with your Primary Care Physician ALAN WOOD DO within the next 24-48 hours to review your Emergency Room visit and the final results of testing that was ordered. Some test results such as Urine Cultures, Blood Cultures, and other cultures if ordered will not be finalized for 24-48 hours. If you do not have a Primary Care Provider please call the medical records department at [phone] ext [phone] to obtain a copy of your results or you may sign into our patient portal to obtain these results by visiting us @ [email or web address] and completing the following steps: 1. Click on the Patient Portal link 2. Click the Patient Self Enrollment Link to complete the enrollment form and entering your 3. Once the enrollment form is completed you will receive an email with a temporary ID and password at the email address you provided. 4. Next choose a user name and password. Your user name must be at least 4 characters long and your password must be at least 4 characters long. 5. Choose a security question from the list and provide your answer to the question. If you already have signed into the Health Portal you may access your Health Care Information 17/06 by the following steps: 1. Login to our website @ [email or web address] 2. Enter your original user name and password. FAQS The [facility] Health Portal is an online tool that contains your Lab Results, Radiology Reports, Visit History, Discharge Instructions and Health Summary Lab and Radiology Results will not be available for 72 hours on the portal. The Portal is a secure site, passwords are encryted and URLs are re-written so they cannot be copied and pasted. You and authorized family members are the only ones who can access your Portal. Also there is a timeout feature that protects your information if you leave the Portal page open. If you have technical difficulty please use the Contact Us link on the page this will allow you to submit any questions you have regarding the Portal or you may contact the Medical Record Department at [phone] ext [phone]. Prescriptions: Benzonatate 100 mg PO TID #21 cap
[2024-04-05] MEDS ORDERED: Robitussin AC Syrup Unit Dose Cup ONE (19:03)
[2024-04-05] MEDS: Robitussin AC Syrup Unit Dose Cup PO ONE (19:06)
[2024-04-05 19:10] VITALS: BP 140/84; O2SAT 94
== END 2024-04-05 19:12 | disposition home or self-care (01) ==
LOC: ED 18:02
DX: R05.8 Other specified cough (principal); J98.01 Acute bronchospasm; J02.9 Acute pharyngitis, unspecified; Z79.899 Other long term (current) drug therapy
CPT/HCPCS: 99282; A9270-GY